=== PATIENT | female | born 1975 | race Caucasian/White ===

== ENCOUNTER 2021-03-24 09:09 | Emergency (ER) | payer SELFPAY ==
--- NOTE | ~2021-03-24 | XR_ITS ---
EXAMINATION: XR shoulder RT min 2V EXAM DATE: 03/24/2021 09:34 INDICATION: Initial encounter following injury, with pain of the right shoulder. Limited range of mot ion. TECHNIQUE: The following right shoulder projections obtained: frontal projection with internal rotati on, frontal projection with external rotation, Grashey, and scapular Y view (4+ views). There is no prior study for comparison. FINDINGS: No evidence of right shoulder rotator cuff calcific tendinosis. Unremarkable right gleno humeral and acromioclavicular joints. There are no acute fractures or dislocations identified. There is no subcutaneous gas. The soft tissue is unremarkable. There are no radiopaque foreign bodies. IMPRESSION: No acute osseous findings. Reviewed, dictated and finalized at location A. IMPRESSION: No acute osseous findings.
--- NOTE | 2021-03-24 09:13 | ED.UPPEXIN ---
HPI - Extremity Injury (Upper) General Chief Complaint: Extremity Injury, Upper Stated Complaint: possibe right shoulder dislocation Time Seen by Provider: 03/24/21 09:14 Source: patient and RN notes reviewed History of Present Illness HPI narrative: Patient is a 45-year-old female who presents the urgent care with complaints of possible right shoulder dislocation. Patient states that she was tugged on her [place] gr[employer]on mix dog yesterday evening while he was trying to go after another dog. Patient states she slammed her right shoulder into the truck. States that she has been taking ibuprofen for the pain and limiting her movement. Patient states without movement the shoulder does not really hurt. Reports of more posterior pain with movement. No other acute complaints or injuries. No acute distress noted. Patient read the plan of care. Some parts of this dictation were generated by voice recognition software and may contain typographical and/or grammatical inaccuracies. Related Data Allergies Allergy/AdvReac Type Severity Reaction Status Date / Time No Known Allergies Allergy Verified 03/24/21 09:21 Review of Systems Review of Systems: CONSTITUTIONAL: Denies fever, chills, or sweats. EYES: Denies visual changes, redness, or discharge. ENT: Denies rhinorrhea, congestion, sore throat, or otalgia. CARDIOVASCULAR: Denies chest pain, palpitations, or edema. RESPIRATORY: Denies cough or dyspnea. GASTROINTESTINAL: Denies abdominal pain, nausea, vomiting, or diarrhea. GENITOURINARY: Denies dysuria or hematuria. SKIN: Denies rash or itching. MUSCULOSKELETAL: Reports of right shoulder pain NEUROLOGIC: Denies headache, numbness, or weakness. All other systems reviewed are negative, except as documented in HPI. PMFSH Comments At the time of my signature, I reviewed and agree with the nursing past medical, surgical, social, and family history. There is no relevant family history pertinent to the patient complaint. Exam Narrative: GENERAL: This is a well-nourished, well-developed patient, in no apparent distress. HEAD: normocephalic, atraumatic. EYES: PERRL. Sclera clear/white. Vision is grossly intact. EARS: External ears normal, auditory canals clear and without drainage, TMs normal without perforation. Hearing grossly intact. NOSE: External nose normal with no obvious nasal discharge, nares without redness, no rhinorrhea. THROAT: Mucous membranes moist CARDIOVASCULAR: Regular rate and rhythm without murmurs, gallops, or rubs. RESPIRATORY: Clear to auscultation. Breath sounds equal bilaterally. No wheezes, rales, or rhonchi. SKIN: warm, intact with no suspicious lesions or rash, good texture and turgor. NEURO: awake, alert, and oriented to person, place and time. There were no obvious focal neurologic abnormalities. EXTREMITIES: No obvious dislocation, ecchymosis, edema or erythema noted to the right shoulder. Range of motion limited due to pain. No joint tenderness noted on assessment. Positive strong right radial pulse with capillary refill less than 2 seconds. Course Vital Signs Vital signs: Vital Signs Temperature 97.8 F 03/24/21 09:14 Pulse Rate 82 03/24/21 09:14 Respiratory Rate 16 03/24/21 09:14 Blood Pressure 126/75 03/24/21 09:14 Pulse Oximetry 100 03/24/21 09:14 Temperature 97.8 F 03/24/21 09:14 Pulse Rate 82 03/24/21 09:14 Respiratory Rate 16 03/24/21 09:14 Blood Pressure 126/75 03/24/21 09:14 Pulse Oximetry 100 03/24/21 09:14 Reviewed MDM - Extremity Injury (Upper) MDM Narrative Medical decision making narrative: Reviewed x-ray results with the patient. She is aware that x-ray was negative for fracture or dislocation. There is tendinitis noted. Advised the patient to use ibuprofen/Tylenol as needed for the pain. Make sure that you are practicing range of motion activity and not holding the shoulder stiff. It will cause frozen shoulder and increased pain. Follow-up with [facility]
[2021-03-24 09:14] VITALS: BP 126/75; PULSE 82; RESP 16; TEMP 36.6; O2SAT 100
== END 2021-03-24 09:52 | disposition home or self-care (01) ==
PROVIDERS: Emergency Provider Nurse Practitioner Family; PCP Family Medicine
DX: M77.9 Enthesopathy, unspecified (principal); S40.011A Contusion of right shoulder, initial encounter; W22.8XXA Striking against or struck by other objects, initial encounter
CPT/HCPCS: 73030; 99203; G0463